=== PATIENT | female | born 1960 ===

== ENCOUNTER → 2018-04-07 | Outpatient (CLI) | payer OTHER ==
[~2018-04-07] MED LIST: GADOBUTROL 10 MMOL/10 ML PFS ONE
== END | disposition home or self-care (01) ==
LOC: RAD 15:05
PROVIDERS: ATTEND Ophthalmology Retina Specialist
DX: H46.8 Other optic neuritis (principal); E23.6 Other disorders of pituitary gland
CPT/HCPCS: 70543; A9585